=== PATIENT | female | born 1990 | race Caucasian/White ===

== ENCOUNTER 2022-01-11 15:43 | Emergency (ER) | payer MEDICAID ==
[~2022-01-11] VITALS: Ht 160 cm; Wt 77.3 kg
[~2022-01-11 15:43] MED LIST: FLAGYL500 MG PO; NUVESSA1.3% PO; PREDNISONE10 MG PO; PRENATAL TABLET PO; PROTONIX 40MG T40 MG PO; RAYOS1 MG PO; ZOLOFT 100MG100 MG PO; ZYRTEC 10MG10 MG PO
[2022-01-11 16:09] VITALS: BP 137/87; TEMP 98
[2022-01-11 16:47] LABS: BASO # 0.1 K/mm3 (0.0-0.2); BASO % 0.8 % (0.0-2.0); EOS # 0.2 K/mm3 (0.0-0.7); EOS % 1.5 % (0.0-4.0); HEMATOCRIT 41.9 % (37.0-47.0); LYMPH # 2.2 K/mm3 (1.2-3.4); LYMPH % 21.4 % (20.0-51.0); MEAN CELL VOLUME 88 fl (80.0-100.0); MEAN CORPUSCULAR HEMOGLOBIN 29 pg (27-31); MEAN CORPUSCULAR HGB CONC 33 g/dl (33.0-37.0); MEAN PLATELET VOLUME 11.4 fl (7.4-10.4); MONO # 0.7 K/mm3 (0.1-0.6); MONO % 6.8 % (1.7-9.3); PLATELET COUNT 221 K/mm3 (130-400); RED BLOOD COUNT 4.76 M/mm3 (4.10-5.30)
[2022-01-11 17:09] LABS: ALBUMIN 4.1 gm/dL (3.5-5.0); BILIRUBIN,TOTAL 0.2 mg/dL (0.2-1.2); CALCIUM 9.5 mg/dL (8.4-10.2); CREATININE, serum 0.93 mg/dL (0.57-1.11); POTASSIUM 3.7 mmol/L (3.5-4.5); TOTAL PROTEIN 7.6 gm/dL (6.2-8.1)
[2022-01-11 17:11] LABS: COLLECTION METHOD CLEAN CATCH
[2022-01-11 17:19] LABS: AMORPHOUS CRYSTAL Present (NOT PRESENT); MUCOUS Present (NOT PRESENT); PH 7 (5-8); URINE APPEARANCE Turbid (CLEAR/HAZY); URINE BACTERIA None Seen /hpf (NONE SEEN); URINE BILIRUBIN Negative (NEGATIVE); URINE BLOOD Negative (NEGATIVE); URINE COLOR Yellow (YELLOW); URINE GLUCOSE Negative (NEGATIVE); URINE KETONE Negative (NEGATIVE); URINE LEUKOCYTE ESTERASE Negative (NEGATIVE); URINE NITRATE Negative (NEGATIVE); URINE PROTEIN(semi-quant) Negative (NEGATIVE); URINE UROBILINOGEN Negative (NEGATIVE)
[2022-01-11] MEDS ORDERED: PRIL40 PO (17:27)
[2022-01-11 17:55] VITALS: PULSE 84
== END 2022-01-11 18:02 | disposition home or self-care (01) ==
LOC: COL.ER 15:43
PROVIDERS: Physician Assistant
DX: R10.13 Epigastric pain (principal); R11.0 Nausea; R19.7 Diarrhea, unspecified; F17.210 Nicotine dependence, cigarettes, uncomplicated; Z28.310 Unvaccinated for COVID-19
CPT/HCPCS: J1885; J2405; J7030

== ENCOUNTER → 2022-01-28 | Outpatient (CLI) | payer MEDICAID ==
[~2022-01-28] MED LIST changes: +PRIL40 PO
== END ==
LOC: COL.RAD 07:08
DX: R10.11 Right upper quadrant pain (principal); R11.0 Nausea; R19.7 Diarrhea, unspecified; R10.13 Epigastric pain

== ENCOUNTER 2022-02-14 12:58 | Emergency (ER) | payer MEDICAID ==
[~2022-02-14] VITALS: Ht 160 cm; Wt 77.3 kg
[2022-02-14 13:07] VITALS: TEMP 98.8
[2022-02-14 14:02] LABS: COLLECTION METHOD CLEAN CATCH
[2022-02-14 14:07] LABS: BASO # 0.1 K/mm3 (0.0-0.2); BASO % 0.6 % (0.0-2.0); EOS # 0.1 K/mm3 (0.0-0.7); GRAN # 7.1 K/mm3 (1.4-6.5); GRAN % 65.8 % (42.2-75.2); HEMATOCRIT 41.7 % (37.0-47.0); HEMOGLOBIN 13.9 g/dl (12.5-16.0); LYMPH # 2.9 K/mm3 (1.2-3.4); LYMPH % 26.6 % (20.0-51.0); MEAN CELL VOLUME 88 fl (80.0-100.0); MEAN CORPUSCULAR HEMOGLOBIN 29 pg (27-31); MEAN CORPUSCULAR HGB CONC 33 g/dl (33.0-37.0); MEAN PLATELET VOLUME 11.7 fl (7.4-10.4); MONO # 0.6 K/mm3 (0.1-0.6); MONO % 5.5 % (1.7-9.3); PLATELET COUNT 207 K/mm3 (130-400); RED BLOOD COUNT 4.76 M/mm3 (4.10-5.30); REDCELL DISTRIBUTION WIDTH-CV 13.2 % (11.5-14.5)
[2022-02-14 14:16] LABS: PH 7 (5-8); SQUAMOUS EPITHELIAL None Seen /hpf (0-10); URINE APPEARANCE Cloudy (CLEAR/HAZY); URINE BACTERIA None Seen /hpf (NONE SEEN); URINE BILIRUBIN Negative (NEGATIVE); URINE BLOOD 3+ (NEGATIVE); URINE COLOR Red (YELLOW); URINE GLUCOSE Negative (NEGATIVE); URINE KETONE Negative (NEGATIVE); URINE LEUKOCYTE ESTERASE Trace (NEGATIVE); URINE NITRATE Negative (NEGATIVE); URINE PROTEIN(semi-quant) 2+ (NEGATIVE); URINE RBC >50 /hpf (0-2); URINE UROBILINOGEN Negative (NEGATIVE); URINE WBC None Seen /hpf (0-2)
[2022-02-14 14:27] LABS: ALANINE AMINOTRANSFERASE 68 U/L (0-55); ALBUMIN 4.1 gm/dL (3.5-5.0); ALKALINE PHOSPHATASE 93 U/L (40-150); ANION GAP 12 mmol/L (7-16); AST,SGOT 47 U/L (5-34); BILIRUBIN,TOTAL 0.3 mg/dL (0.2-1.2); BLOOD UREA NITROGEN 7 mg/dL (7-19); CALCIUM 9.7 mg/dL (8.4-10.2); CARBON DIOXIDE 20 mmol/L (22-29); CHLORIDE 110 mmol/L (98-107); CREATININE, serum 0.82 mg/dL (0.57-1.11); GLUCOSE 93 mg/dL (70-99); POTASSIUM 3.7 mmol/L (3.5-4.5); SODIUM 142 mmol/L (136-145); TOTAL PROTEIN 7.7 gm/dL (6.2-8.1)
[2022-02-14 14:34] LABS: TROPONIN-I < 0.010 ng/mL (0.00-0.033)
[2022-02-14 16:10] VITALS: BP 115/69; PULSE 66
== END 2022-02-14 16:20 | disposition home or self-care (01) ==
LOC: COL.ER 12:58
PROVIDERS: Emergency Medicine
DX: R20.2 Paresthesia of skin (principal); R07.89 Other chest pain; Z28.310 Unvaccinated for COVID-19
CPT/HCPCS: J7120

== ENCOUNTER 2022-11-05 23:44 | Emergency (ER) | payer MEDICAID ==
[~2022-11-05] VITALS: Ht 160 cm; Wt 77.3 kg
[2022-11-05 23:51] VITALS: TEMP 97.3
[2022-11-06 00:22] LABS: BASO # 0.1 K/mm3 (0.0-0.2); BASO % 0.6 % (0.0-2.0); EOS # 0.2 K/mm3 (0.0-0.7); EOS % 1.5 % (0.0-4.0); GRAN # 8.9 K/mm3 (1.4-6.5); GRAN % 65.9 % (42.2-75.2); HEMATOCRIT 43.5 % (37.0-47.0); HEMOGLOBIN 14.6 g/dl (12.5-16.0); LYMPH # 3.4 K/mm3 (1.2-3.4); LYMPH % 25.3 % (20.0-51.0); MEAN CELL VOLUME 88 fl (80.0-100.0); MEAN CORPUSCULAR HEMOGLOBIN 30 pg (27-31); MEAN CORPUSCULAR HGB CONC 34 g/dl (33.0-37.0); MEAN PLATELET VOLUME 11.7 fl (7.4-10.4); MONO # 0.8 K/mm3 (0.1-0.6); PLATELET COUNT 224 K/mm3 (130-400); RED BLOOD COUNT 4.94 M/mm3 (4.10-5.30); REDCELL DISTRIBUTION WIDTH-CV 13.4 % (11.5-14.5)
[2022-11-06 00:32] LABS: ALANINE AMINOTRANSFERASE 50 U/L (0-55); ALBUMIN 4.4 gm/dL (3.5-5.0); ALKALINE PHOSPHATASE 79 U/L (40-150); ANION GAP 10 mmol/L (7-16); AST,SGOT 30 U/L (5-34); BILIRUBIN,TOTAL 0.3 mg/dL (0.2-1.2); BLOOD UREA NITROGEN 10 mg/dL (7-19); CALCIUM 9.6 mg/dL (8.4-10.2); CARBON DIOXIDE 19 mmol/L (22-29); CHLORIDE 106 mmol/L (98-107); CREATININE, serum 0.91 mg/dL (0.57-1.11); GLUCOSE 109 mg/dL (70-99); POTASSIUM 3.7 mmol/L (3.5-4.5); SODIUM 135 mmol/L (136-145); TOTAL PROTEIN 7.9 gm/dL (6.2-8.1)
[2022-11-06 00:39] LABS: TROPONIN-I < 0.010 ng/mL (0.00-0.033)
[2022-11-06 01:32] VITALS: BP 113/69; PULSE 71
== END 2022-11-06 01:33 | disposition home or self-care (01) ==
LOC: COL.ER 23:44
PROVIDERS: Emergency Medicine
DX: R07.89 Other chest pain (principal); D72.829 Elevated white blood cell count, unspecified; E87.1 Hypo-osmolality and hyponatremia; F17.200 Nicotine dependence, unspecified, uncomplicated; Z28.310 Unvaccinated for COVID-19
CPT/HCPCS: J7040

== ENCOUNTER 2023-11-10 05:12 | Inpatient (IN) | payer MEDICAID ==
[2023-11-10] VITALS (50 sets, daily range): BP systolic 105–167; BP diastolic 52–98; PULSE 64–104; TEMP 97.7–98.6
[~2023-11-10] VITALS: Ht 160 cm; Wt 86.4 kg
--- NOTE | 2023-11-10 05:15 | NUR ---
To L&D for labor assessment, accompanied by spouse. oriented to room ,monitor, plan of care. Pt reports SROM @ 0400. SVE copious clear fluid. Pt tearful worried about baby being "so early", explained to pt that at 35 wks some baby do well and we just wait to see how she does. Dr Domínugez on unit, into room. Bedside sono by Dr Domínguez confirms vertex presentation. Dr Domínguez reviews plan of care with pt.
[2023-11-10] MEDS ORDERED: LR 1,000 ML IV PRN ×2 (05:30→16:30)
[2023-11-10] MEDS ORDERED: Penicillin G Potassium 5,000,000 UNITS in NS 100 ML IV ONE (05:30)
[2023-11-10] MEDS ORDERED: LR & Oxytocin 500 ML IV SCH ×2 (05:30→06:15)
[2023-11-10 06:26] LABS: HEMATOCRIT 38.8 % (37.0-47.0); MEAN CELL VOLUME 88 fl (80.0-100.0); MEAN CORPUSCULAR HEMOGLOBIN 30 pg (27-31); MEAN CORPUSCULAR HGB CONC 34 g/dl (33.0-37.0); MEAN PLATELET VOLUME 13.5 fl (7.4-10.4); PLATELET COUNT 106 K/mm3 (130-400); RED BLOOD COUNT 4.39 M/mm3 (4.10-5.30); REDCELL DISTRIBUTION WIDTH-CV 14.4 % (11.5-14.5)
[2023-11-10 06:43] LABS: ALBUMIN 2.5 gm/dL (3.5-5.0); BILIRUBIN,TOTAL 0.2 mg/dL (0.2-1.2); CREATININE, serum 0.7 mg/dL (0.57-1.11); POTASSIUM 3.9 mmol/L (3.5-4.5); TOTAL PROTEIN 5.8 gm/dL (6.2-8.1)
[2023-11-10 07:08] LABS: LYMPHOCYTE 20 % (20.0-51.0); NEUTROPHILS 74 % (42.0-75.2); PLATELET ESTIMATE DECREASED (NORMAL)
[2023-11-10] MEDS ORDERED: Penicillin G Potassium 2,500,000 UNITS in NS 100 ML IV SCH (09:30)
[2023-11-10] MEDS ORDERED: ROPivacaine PF 0.2% 200 ML IV ONE (11:09)
--- NOTE | 2023-11-10 11:20 | NUR ---
PT SITTING UP ON THE SIDE OF THE BED FOR EPIDURAL PLACEMENT.PT FEELING ANXIOUS.LR BOLUS INFUSING PER PROTOCOL.DIFFICULTY TRACING EFM AND TOCO DUE TO MATERNAL POSITIONING.PULSE OX AND BLOOD PRESSURE TRACING EVERY 5 MINUTES. 1101 SINGLE SHOT ADMINISTERED PER OLLIE VASQUEZ.PT TOLERATED WELL.
--- NOTE | 2023-11-10 11:22 | NUR ---
0950 PROLONGED DECEL INTO 90S AUDIBLE AT BEDSIDE.PITOCIN TURNED OFF.PT REPOSITIONED. HEARTTONES BEGIN TO RECOVER.PHYSICIAN NOTIFIED. 1000 DR SAEZ AT BEDSIDE. 1010 RECURRENT DECELS 90-120S NOTED.SVE PER DR SAEZ /-3. PITOCIN REMAINS OFF.O[address] SAEZ.PT WEDGED LEFT. HEART TONES RECOVERING.
[2023-11-10] MEDS ORDERED: diphenhydrAMINE 25 MG CAP PO PRN (11:30)
[2023-11-10] MEDS ORDERED: Ondansetron 4 MG/2 ML VIAL IV PRN ×2 (11:30→16:30)
[2023-11-10] MEDS ORDERED: diphenhydrAMINE 50 MG/ML 1 ML VIAL IV PRN (11:30)
[2023-11-10] MEDS ORDERED: Naloxone 0.4 MG/ML VIAL IV PRN ×2 (11:30→16:30)
[2023-11-10] MEDS ORDERED: ePHEDrine 50 MG/10 ML VIAL IV PRN (11:30)
--- NOTE | 2023-11-10 11:36 | NUR ---
1130 HEART TONES RECOVERED.RESTARTED PITOCIN BACK AT 2MU PER DR SAEZ.
--- NOTE | 2023-11-10 15:29 | NUR ---
1530 RECURRENT LATE DECELS INTO THE 90S NOTED. PITOCIN TURNED OFF PER DR SAEZ. PT IN WEDGED LEFT POSITION.
[2023-11-10] MEDS ORDERED: Chloroprocaine PF 3% (30 MG/ML) 20 ML VIAL ONE (16:29)
[2023-11-10] MEDS ORDERED: oxyCODONE 5 MG TAB PO PRN (16:30)
[2023-11-10] MEDS ORDERED: Loratadine 10 MG TAB PO PRN (16:30)
[2023-11-10] MEDS ORDERED: Tranexamic Acid 1,000 MG in NS 100 ML IV ONE (16:30)
[2023-11-10] MEDS ORDERED: Measles/Mumps/Rubella Virus Vaccine Live w Diluent 0.5 ML VIAL SQ SCH (16:30)
[2023-11-10] MEDS ORDERED: Acetaminophen 500 MG TAB PO PRN (16:30)
[2023-11-10] MEDS ORDERED: Magnes Hydrox (MOM) 80 MG/ML 30 ML CUP PO PRN (16:30)
[2023-11-10] MEDS ORDERED: NS 10 ML IV ONE ×2 (16:34→17:07)
[2023-11-10] MEDS ORDERED: Tranexamic Acid 1,000 MG/10 ML VIAL ONE (16:46)
[2023-11-10] MEDS ORDERED: Midazolam 2 MG/2 ML VIAL ONE (16:51)
[2023-11-10] MEDS ORDERED: fentaNYL 50 MCG/ML 2 ML VIAL ONE ×2 (16:53→17:26)
[2023-11-10] MEDS ORDERED: Sennosides/Docusate 8.6-50 MG TAB PO SCH (17:00)
[2023-11-10] MEDS ORDERED: dexAMETHasone 10 MG/ML VIAL ONE (17:07)
[2023-11-10] MEDS ORDERED: traZODone 50 MG TAB PO PRN (21:00)
[2023-11-10 21:14] LABS: HEMOGLOBIN 12.3 g/dl (12.5-16.0); MEAN CELL VOLUME 88 fl (80.0-100.0); MEAN CORPUSCULAR HEMOGLOBIN 30 pg (27-31); MEAN CORPUSCULAR HGB CONC 33 g/dl (33.0-37.0); PLATELET COUNT 110 K/mm3 (130-400); RED BLOOD COUNT 4.17 M/mm3 (4.10-5.30); REDCELL DISTRIBUTION WIDTH-CV 14.4 % (11.5-14.5)
[2023-11-10 21:33] LABS: HEMATOCRIT 36.8 % (37.0-47.0)
[2023-11-10 22:18] LABS: BAND 18 % (0-10); LYMPHOCYTE 4 % (20.0-51.0); NEUTROPHILS 76 % (42.0-75.2); PLATELET ESTIMATE NORMAL (NORMAL)
[2023-11-10] MEDS ORDERED: Ibuprofen 800 MG TAB PO SCH (22:22)
[2023-11-11] VITALS: BP 116/72; PULSE 78; TEMP 99
[2023-11-11 07:02] VITALS: BP 128/77; PULSE 88; TEMP 98.2
--- NOTE | 2023-11-11 10:50 | NUR ---
Initial visit attempt; Patient out of room, Landing Man left card offering Congratulations for the of her daughter and information regarding the availability of [facility] at our [facility].
[2023-11-11 11:00] VITALS: BP 117/64; PULSE 74; TEMP 98.2
[2023-11-11] MEDS ORDERED: MOTRIN 800800 MG/TAB PO (13:46)
[2023-11-11] MEDS ORDERED: PERCOCET 325 MG1 TA2 PO (13:46)
[2023-11-11 14:55] VITALS: BP 138/80; PULSE 92
[2023-11-11 20:00] VITALS: BP 123/86; PULSE 78; TEMP 98.5
[2023-11-12 08:45] VITALS: BP 135/82; PULSE 104; TEMP 97.8
[2023-11-12 16:40] VITALS: BP 142/88; PULSE 79; TEMP 97.8
[2023-11-12 21:15] VITALS: BP 132/90; PULSE 85; TEMP 98.4
[2023-11-13 08:45] VITALS: BP 125/79; PULSE 99; TEMP 98.3
--- NOTE | 2023-11-13 12:15 | NUR ---
DISCHARGE TEACHING COMPLETED. EDUCATED ON FOLLOW UP APPOINTMENTS AND PRESCRIPTIONS. QUESTIONS INVITED AND ANSWERED.
== END 2023-11-13 12:30 | disposition home or self-care (01) | DRG 788 ==
LOC: LDRO 05:12 → OB 06:00 → LDR 06:00 → OB 18:00
PROVIDERS: ADMIT Obstetrics & Gynecology
PROC: 10D00Z1 Extraction of Products of Conception, Low, Open Approach (ICD-10-PCS; principal; 2023-11-10)
DX: O42.913 Preterm premature rupture of membranes, unspecified as to length of time between rupture and onset of labor, third trimester (principal); Z3A.35 35 weeks gestation of pregnancy; Z37.0 Single live birth; K21.9 Gastro-esophageal reflux disease without esophagitis; O99.62 Diseases of the digestive system complicating childbirth; O69.89X0 Labor and delivery complicated by other cord complications, not applicable or unspecified; O76 Abnormality in fetal heart rate and rhythm complicating labor and delivery; O99.02 Anemia complicating childbirth
CPT/HCPCS: J0665; J1100; J2250; J2401; J2540; J2590; J2704; J2795; J3010; J7120